=== PATIENT | male | born 1985 | race Caucasian/White ===

== ENCOUNTER 2016-12-15 17:20 | Emergency (ER) | payer OTHER ==
--- NOTE | ~2016-12-15 | CR181 ---
[facility] A Service of [facility] RADIOLOGY TEXT RESULTS PATIENT: GRAZYNA DAVILA LOCATION: [facility] : 81 UNIT #: [id number] AGE: [address]: Kendra Rosenberg SEX: M ORDER DR: [id number] [facility] [address] [place], [place] [address] [id number] E MR#: [id number] Acc #: [id number] NAME: GRAZYNA DAVILA. : 1985 SEX: M STUDY DATE/TIME: 12/15/2016 17:29 UNIT: [facility] ROOM: STUDY DESCRIPTION: CR Lumbar Spine 2 or 3 Views Attending Physician: Kendra Rosenberg P.A.-C. Ordering Physician: Kendra Rosenberg P.A.-C. Primary Care Physician: No Primary Care Physician MEDICAL IMAGING REPORT This report is preliminary unless electronic signature is present EXAM Lumbar spine, 3 views. HISTORY Back and right leg pain for 7 months. No injury. FINDINGS 3 views lumbar spine demonstrate mild right lumbar curve. 6 lumbar-type vertebrae. Spondylolysis at L5 with grade 1 spondylolisthesis of L5 on L6 measuring 1.2 cm and moderately severe disc space narrowing at L5-6. There is also mild disc space narrowing at L6-S1. IMPRESSION 1. No acute finding. 2. Grade 1 spondylolisthesis of L5 on L6 measuring 1.2 cm and moderately severe disc space narrowing at L5-6 and spondylolysis at L5. There is also mild disc space narrowing at L6-S1. 3. Mild right lumbar curve. Dictated by... Baljeet Carver M.D. THIS IS AN ELECTRONICALLY VERIFIED REPORT Baljeet Carver M.D. at 12/15/2016 11:45 PM NOHEMI/emerald TD: 12/15/2016 20:19 JOB #: [id number] MEDICAL IMAGING REPORT Page 1 of 1 COPY
[~2016-12-15 17:20] MED LIST: IBUPROFEN800 MG PO; PEN-VEE K PO; VOLTAREN75 MG PO
== END 2016-12-15 18:45 | disposition home or self-care (01) ==
LOC: CFTX 17:20
DX: M54.16 Radiculopathy, lumbar region (principal); Z90.49 Acquired absence of other specified parts of digestive tract; F17.210 Nicotine dependence, cigarettes, uncomplicated
CPT/HCPCS: 72100; 96372; 99283; J1885